=== PATIENT | female | born 1985 ===

== ENCOUNTER 2018-01-16 12:29 | Emergency (ER) | payer OTHER ==
[2018-01-16 12:41] VITALS: RESP 16
[2018-01-16] MEDS ORDERED: Sodium Chloride 0.9% 1,000 ML IV ONE (13:16)
[2018-01-16 13:52] LABS: BASO % 0.8 % (0.0-2.0); EOS # 0.1 K/uL (0.0-0.7); HEMOGLOBIN 12.2 g/dL (11.0-16.0); LYMPH # 2.2 K/uL (1.0-4.3); LYMPH % 37.1 % (20.0-40.0); MEAN CELL VOLUME 67.8 fL (81.0-99.0); MEAN CORPUSCULAR HEMOGLOBIN 22.1 pg (27.0-31.0); MEAN CORPUSCULAR HGB CONC 32.5 g/dL (33.0-37.0); MEAN PLATELET VOLUME 8.2 fL (7.2-11.7); MONO # 0.4 K/uL (0.0-0.8); MONO % 6.1 % (0.0-10.0); NEUT # 3.2 K/uL (1.8-7.0); RBC 5.53 Mil/uL (3.80-5.20); RED CELL DISTRIBUTION WIDTH 18.9 % (11.5-14.5)
[2018-01-16 14:07] LABS: HCG,QUALITATIVE URINE POSITIVE (NEGATIVE)
[2018-01-16 14:09] LABS: ALB/GLOB RATIO 1.2 (1.0-2.1); ALBUMIN 4.5 g/dL (3.5-5.0); ALT/SGPT 28 U/L (9-52); AST/SGOT 23 U/L (14-36); BLOOD UREA NITROGEN 14 mg/dL (7-17); CALCIUM 9.2 mg/dl (8.6-10.4); GFR AFRICAN-AMERICAN > 60; GFR NON-AFRICAN AMERICAN > 60
[2018-01-16 14:10] LABS: SQUAMOUS EPITHIAL 1 /hpf (0-5); URINE BILIRUBIN NEGATIVE (NEGATIVE); URINE BLOOD NEGATIVE (NEGATIVE); URINE CLARITY Clear (Clear); URINE COLOR Straw (YELLOW); URINE GLUCOSE (UA) NORMAL (Normal); URINE LEUKOCYTE ESTERASE TRACE Leu/uL (Negative); URINE NITRATE NEGATIVE (NEGATIVE); URINE PROTEIN NEGATIVE (NEGATIVE); URINE UROBILINOGEN NORMAL mg/dL (0.2-1.0)
--- NOTE | 2018-01-16 15:05 | C.PDOC ---
History Of Present Illness 32 y/o female presents to ED with complaints of vaginal spotting for the past week associated with crampy epigastric discomfort. Patient states positive test at home. Denies any other physical complaints. Patients LMP was . Time Seen by Provider: 01/16/18 13:12 Chief Complaint (Nursing): Abdominal Pain History Per: Patient History/Exam Limitations: no limitations Onset/Duration Of Symptoms: Days (7) Current Symptoms Are (Timing): Still Present Location Of Pain/Discomfort: Epigastric Radiation Of Pain To:: None Quality Of Discomfort: Cramping Associated Symptoms: denies: Fever, Chills, Nausea, Vomiting Exacerbating Factors: None Alleviating Factors: None Recent travel outside of the [place]: No Abnormal Vaginal Bleeding: No Past Medical History Reviewed: Historical Data, Nursing Documentation, Vital Signs Vital Signs: Last Vital Signs Temp 98.2 F 01/16/18 15:15 Pulse 58 L 01/16/18 15:15 Resp 16 01/16/18 15:15 BP 124/80 01/16/18 15:15 Pulse Ox 99 01/16/18 15:23 - Medical History PMH: No Chronic Diseases Surgical History: No Surg Hx Family History: States: No Known Family Hx - Social History Hx Alcohol Use: No Hx Substance Use: No - Immunization History Hx Tetanus Toxoid Vaccination: No Hx Influenza Vaccination: No Hx Pneumococcal Vaccination: No Review Of Systems Constitutional: Negative for: Fever, Chills Cardiovascular: Negative for: Chest Pain Respiratory: Negative for: Shortness of Breath Gastrointestinal: Positive for: Abdominal Pain (epigastric discomfort ). Negative for: Nausea, Vomiting, Diarrhea Genitourinary: Positive for: Other (Vaginal spotting). Negative for: Dysuria, Vaginal Discharge Neurological: Negative for: Weakness, Numbness Physical Exam - Physical Exam Appears: Well, Non-toxic, No Acute Distress, Other (Smiling ) Skin: Normal Color, Warm, Dry Head: Atraumatic, Normacephalic Eye(s): bilateral: Normal Inspection Oral Mucosa: Moist Neck: Supple Chest: Symmetrical, No Tenderness Cardiovascular: Rhythm Regular Respiratory: Normal Breath Sounds, No Decreased Breath Sounds, No Rales, No Rhonchi, No Wheezing Gastrointestinal/Abdominal: Soft, No Tenderness, No Distention, No Guarding, No Rebound Neurological/Psych: Oriented x3, Normal Speech, Normal Cognition ED Course And Treatment - Laboratory Results Result Diagrams: 01/16/18 13:40 01/16/18 13:40 Lab Interpretation: Abnormal (quant HCG 343 low, B+) Urine POC: Positive O2 Sat by Pulse Oximetry: 99 (RA) Pulse Ox Interpretation: Normal - CT Scan/US Us Abdomen/Pelvis Other Rad Studies (CT/US): Read By Radiologist, Radiology Report Reviewed CT/US Interpretation: IMPRESSION: No evidence of intrauterine . Heterogeneous uterus contains 2 fundal fibroids. Complex thick wall cyst at the right ovary measures 2.2 centimeter. Correlation with serial beta HCG levels and close follow-up reassessment by ultrasound is suggested. Reevaluation Time: 15:35 Reassessment Condition: Unchanged Medical Decision Making Medical Decision Making: Ordered BBK, blood work, urinalysis, and Pelvis/transvaginal US. AB in progress or missed AB outpatient f/u. Disposition Doctor Will See Patient In The: Office Counseled Patient/Family Regarding: Studies Performed, Diagnosis - Disposition Disposition: HOME/ ROUTINE Disposition Time: 15:36 Condition: GOOD Forms: [employer] (Jamaican) - Clinical Impression Clinical Impression: Abdominal pain, - Scribe Statement The provider has reviewed the documentation as recorded by the Daribluis Donahue All medical record entries made by the Daribluis were at my direction and personally dictated by me. I have reviewed the chart and agree that the record accurately reflects my personal performance of the history, physical exam, medical decision making, and the department course for this patient. I have also personally directed, reviewed, and agree with the discharge instructions and disposition.
[2018-01-16 15:15] VITALS: BP 124/80; PULSE 58; TEMP 98.2
--- NOTE | 2018-01-16 15:20 | US ---
HISTORY: early preg, spotting, LMP 12/13/17 COMPARISON: None available. TECHNIQUE: Transabdominal and endovaginal ultrasound examination of the pelvis was performed. FINDINGS: UTERUS: Measures 8.3 x 4.6 x 5.9 cm. Heterogeneous echotexture of the uterus noted. There is a posterior fundal subserosal fibroid measures 2.7 x 2.4 x 2.7 centimeter. There is also fundal fibroid measures 0.8 x 0.6 x 0.8 centimeter. ENDOMETRIUM: Measures 25 mm in diameter. Heterogeneous echotexture of the endometrial stripe is noted. No ultrasound evidence of intrauterine . CERVIX: No cervical abnormality identified. RIGHT OVARY: Measures 3.1 x 2.7 x 3.2 cm. No solid mass. Normal flow. There is complex thick wall cyst seen at the right ovary measures 2.2 x 2 x 2 centimeter P LEFT OVARY: Measures 2.8 x 2.6 x 2.7 cm. No solid mass. Normal flow. FREE FLUID: No significant free fluid noted. OTHER FINDINGS: None. IMPRESSION: No evidence of intrauterine . Heterogeneous uterus contains 2 fundal fibroids. Complex thick wall cyst at the right ovary measures 2.2 centimeter. Correlation with serial beta HCG levels and close follow-up reassessment by ultrasound is suggested.
[2018-01-16 15:23] VITALS: O2SAT 99
== END 2018-01-16 16:02 | disposition home or self-care (01) ==
LOC: C.ER 12:29
DX: O26.91 Pregnancy related conditions, unspecified, first trimester (principal); R10.9 Unspecified abdominal pain; Z3A.00 Weeks of gestation of pregnancy not specified
CPT/HCPCS: 76830; 76856; 80053; 81001; 84702; 84703; 85025; 86850; 86900; 96360; 99284; J7040